=== PATIENT | female | born 1940 | race Caucasian/White ===

== ENCOUNTER 2017-05-19 12:17 | Emergency (ER) | payer MEDICARE ==
[~2017-05-19] VITALS: Ht 167.6 cm; Wt 71.5 kg
[~2017-05-19 12:17] MED LIST: ALBU0.08 NEB; ASPI81TA81 PO; CART120C PO; IPRA0.02 NEB; JAKAFI PO; LEVA500T PO; LORA-373 PO; LOVA20TA PO; METO50TA PO; NEBULIZER/ADULT1 KIT; VENTAER INH
[2017-05-19 12:20] VITALS: BP 190/94; PULSE 66; RESP 20; TEMP 98; O2SAT 99
--- NOTE | 2017-05-19 12:31 | PD ---
HPI . elevated blood pressure Chief Complaint: Medical Clearance Time Seen by Provider: 12:31 Travel History International Travel<30 days: No Contact w/Intl Traveler<30days: No Traveled to known affect area: No History of Present Illness HPI 76-year-old female with history of polycythemia vera, hypertension and atrial for ablation here secondary elevated blood pressure. Patient tells me that she started a new medication Anagrelide approximately one month ago and that it seems her blood pressure may have been going up due to this medication. She apparently contacted her ribbon hanking machine operator who recommended she come into the ED for evaluation. She had some dizziness yesterday when walking her dog, but that has since resolved. Patient has no specific complaints. She denies any chest pain, nausea, vomiting, shortness of breath, abdominal pain, bowel or bladder changes. PFSH Past Medical History Hx Anticoagulant Therapy: Yes (81MG ASA) Atrial Fibrillation: Yes Cancer: No Cardiovascular Problems: Yes Cerebrovascular Accident: Yes (2006) Diabetes: No Diminished Hearing: No Endocrine: No Genitourinary: No Hepatitis: No Hiatal Hernia: No Hypertension: Yes Immune Disorder: No Musculoskeletal: Yes (fibromyalgia) Neurologic: Yes Psychiatric: No Reproductive: No Respiratory: Yes (ASTHMA) Immunizations Current: Yes Sleep Apnea: Yes Thyroid Disease: No Menopausal: Yes Past Surgical History Abdominal Surgery: No AICD: No Cardiac Surgery: Yes Ear Surgery: No Endocrine Surgery: No Eye Surgery: No Genitourinary Surgery: No Gynecologic Surgery: No Joint Replacement: No Oral Surgery: No Pacemaker: No Thoracic Surgery: No Social History Alcohol Use: Yes (OCC) Tobacco Use: No Substance Use: No Allergies-Medications (Allergen,Severity, Reaction): Coded Allergies: Penicillin (Verified Allergy, Intermediate, Hives, 05/19/17) Reported Meds & Prescriptions Reported Meds & Active Scripts Active Hydrochlorothiazide 25 Mg Tab 25 Mg PO DAILY Ventolin Hfa 18 GM Inh (Albuterol Sulfate) 90 Mcg/Act Aer 1 Puff INH Q4H PRN Levaquin (Levofloxacin) 500 Mg Tab 500 Mg PO DAILY 5 Days Nebulizer/Adult Mask (N/A) 1 Kit Kit Units Ipratropium Neb (Ipratropium [place]) 0.5 Mg/2.5 Ml Amp 0.5 Mg NEB Q4HR NEB PRN Albuterol Neb (Albuterol Sulfate) 2.5 Mg/3 Ml Neb 2.5 Mg NEB Q4HR NEB PRN Reported Metoprolol Tartrate 50 Mg Tab 50 Mg PO BID Lovastatin 20 Mg Tab 20 Mg PO HS Lorazepam 0.5 Mg Tab 0.5 Mg PO HS Aspir-81 (Aspirin) 81 Mg Tabdr 81 Mg PO DAILY Cartia Xt (Diltiazem ER 24 HR) 120 Mg Caper 120 Mg PO DAILY [Jakafi] 15 Mg PO BID Review of Systems General / Constitutional: No: Fever Eyes: No: Visual changes HENT: No: Headaches Cardiovascular: No: Chest Pain or Discomfort Respiratory: No: Shortness of Breath Gastrointestinal: No: Abdominal Pain Genitourinary: No: Dysuria Musculoskeletal: No: Pain Skin: No Rash Neurologic: No: Weakness Psychiatric: No: Depression Endocrine: No: Polydipsia Hematologic/Lymphatic: No: Easy Bruising Physical Exam Narrative GENERAL: AAO x 3, no acute distress, Well-nourished, well-developed patient. SKIN: Warm and dry. No visible rashes or bruising. HEAD: Normocephalic and atraumatic. EYES: No scleral icterus. No injection or drainage. EOM intact, PERRLA ENT: No nasal drainage noted. Mucous membranes pink. Airway patent. NECK: Supple, trachea midline. No JVD. CARDIOVASCULAR: Regular rate and rhythm without murmurs, gallops, or rubs. RESPIRATORY: Breath sounds equal bilaterally. No accessory muscle use. No rhonchi or rales. GASTROINTESTINAL: Abdomen soft, non-tender, nondistended. EXTREMITIES: No cyanosis or edema. BACK: Nontender without obvious deformity. No CVA tenderness. NEURO: CN II-12 intact, associate accountant strength normal b/l, UE and LE 5/5, no focal deficits PSYCH: AAO x 3, normal affect. Data Data Last Documented VS Vital Signs Date Time Temp Pulse Resp B/P Pulse Ox O2 Delivery O2 Flow Rate FiO2 05/19/17 12:45 179/99 05/19/17 12:42 62 16 99 Room Air 05/19/17 12:20 98.0 Orders Electrocardiogram (05/19/17 ) MDM Medical Decision Making Medical Screen Exam Complete: Yes Emergency Medical Condition: Yes Medical Record Reviewed: Yes Differential Diagnosis a fib, uncontrolled HTN, dysrhythmia, bradycardia, anxiety Narrative Course 76-year-old female here with complaints of hypertension. EKG was done since patient has a history of A. fib. There are no gross abnormalities with EKG other than bradycardia. Blood pressure mildly elevated here in the emergency department. Case has been discussed with my attending Dr. Chuckie Vasquez. 1307: call back requested from Dr. Rasheed We must be cautious with beta garfield CCB as patient has bradycardia: 1354 Discussed with business support liaison Dr. Ocampo; recommend HCTZ 25 mg daily and f/u with cardio I discussed the treatment plan with the patient. She goes on to tell me that she frequent rechecks her blood pressure at home. I do believe there some underlying anxiety that is contributing to her elevated blood pressure. I have advised her to follow-up with her ribbon hanking machine operator for further recommendations. She is in agreement with the treatment plan and recommendations. Patient verbalized understanding of instructions, questions were answered, and thanked me for their care. I advised them if their condition worsens, please return to the nearest emergency room for further care. Diagnosis Primary Impression: Hypertension Qualified Code: I10 - Essential hypertension Patient Instructions: General Instructions Additional Instructions: Follow-up with your ribbon hanking machine operator. Please return to emergency department if your symptoms return or worsen. Follow up with your primary care provider. Med/Other Pt SpecificInfo: Prescription(s) given Scripts Hydrochlorothiazide 25 Mg Tab25 Mg PO DAILY #15 TAB Ref 0 Prov:Chuckie Vasquez MD 05/19/17 Disposition: 01 DISCHARGE HOME Condition: Stable Abigail Moreland May 19, 2017 12:31
[2017-05-19 12:42] VITALS: BP 194/93; PULSE 62; RESP 16; O2SAT 99
[2017-05-19 12:45] VITALS: BP 179/99
[2017-05-19] MEDS ORDERED: HYDR25TA5 PO (13:55)
[2017-05-19 14:11] VITALS: BP_SYST 162; BP_SYST 176; BP_DIAS 81; BP_DIAS 82; PULSE 60; RESP 16; O2SAT 96
--- NOTE | 2017-05-20 16:41 | EKG ---
Date Performed: 05/19/2017 Time Performed: 13:00:40 PTAGE: 76 years EKG: SINUS BRADYCARDIA MINIMAL ST DEPRESSION BORDERLINE ECG PREVIOUS TRACING : 08/21/2016 12.00 Since previous tracing, the ST-T changes anterolateraly hav e improved. DOCTOR: Juan Jose Sánchez Interpretating Date/Time 05/20/2017 16:41:24
== END 2017-05-19 14:00 | disposition home or self-care (01) ==
LOC: NEPC 12:17
DX: I10 Essential (primary) hypertension (principal)
CPT/HCPCS: 93005

== ENCOUNTER 2017-11-17 11:09 | Day surgery (SDC) | payer MEDICARE ==
[~2017-11-17 11:09] MED LIST changes: +HYDR25TA5 PO; -LORA-373 PO; +LORA0.5T PO
[2017-11-17] MEDS ORDERED: NS 1000 ML IV SCH (12:00)
[2017-11-17] MEDS ORDERED: MUPIROCIN 2% OINT 1 APPLIC/GM SYR NASAL SCH (12:15)
[2017-11-17] MEDS ORDERED: CHLORHEXIDINE GLUCONATE 2 % 1 PACK (2 CLOTHS) TOPICAL SCH (12:15)
[2017-11-17] MEDS ORDERED: POVIDONE IODINE 5% (ANTISEPSIS KIT) 4 APPLICATIONS EACH NARE SCH (12:15)
[2017-11-17] MEDS ORDERED: VANCOMYCIN 1000 MG/NS 250 ML IV SCH ×2 (12:15)
[2017-11-17] MEDS ORDERED: ANAG.5 PO (12:38)
--- NOTE | 2017-11-17 19:08 | MR ---
cc: ANA LAURA EASTON MD DATE: 11/17/2017. PROCEDURE PERFORMED: Loop recorder insertion. INDICATIONS FOR THE PROCEDURE: Questionable atrial fibrillation. DESCRIPTION OF THE PROCEDURE: The patient was brought to the DOC unit in the postabsorptive state. After informed consent was obtained, a [employer] LINQ loop recorder was inserted subcutaneously to the left chest. The patient tolerated the procedure well without any apparent complications. Tachybrady pause and atrial fibrillation detection was enabled. The initial R-wave was 0.22 mV. The serial number was [id number] MD JOHNSON Matthew/IRMA /1:43 PM /6:56 PM
== END 2017-11-17 14:25 | disposition home or self-care (01) ==
LOC: HDOC 11:09 → HDIC 11:11 → HDOC 14:25
PROVIDERS: ATTEND Nuclear Medicine Nuclear Cardiology
DX: I10 Essential (primary) hypertension (principal); E78.5 Hyperlipidemia, unspecified; J45.909 Unspecified asthma, uncomplicated; I70.90 Unspecified atherosclerosis; J44.9 Chronic obstructive pulmonary disease, unspecified; N18.3 Chronic kidney disease, stage 3 (moderate); M79.7 Fibromyalgia; I13.10 Hypertensive heart and chronic kidney disease without heart failure, with stage 1 through stage 4 chronic kidney disease, or unspecified chronic kidney disease; D46.9 Myelodysplastic syndrome, unspecified; E61.1 Iron deficiency; G47.33 Obstructive sleep apnea (adult) (pediatric); D47.3 Essential (hemorrhagic) thrombocythemia; M85.80 Other specified disorders of bone density and structure, unspecified site; I63.8 Other cerebral infarction; Z99.81 Dependence on supplemental oxygen; R06.00 Dyspnea, unspecified
CPT/HCPCS: 33282; C1764; J3370; J7050